=== PATIENT | male | born 1935 | race Two or more races ===

== ENCOUNTER 2019-09-20 07:46 | Inpatient (IN) | payer OTHER, MEDICAID ==
[~2019-09-20] VITALS: Ht 170.2 cm; Wt 81.6 kg
[2019-09-20] MEDS ORDERED: SODIUM CHLORIDE 0.9% 1,000 ML IV ONE (09:33)
[2019-09-20 10:12] LABS: Basophils # (auto) 0.1 10 ^3/uL (0-0.2); Basophils % (auto) 0.5 % (0.0-2.0); Eosinophils # (auto) 0.1 10 ^3/uL (0-0.8); Eosinophils % (auto) 0.4 % (0.0-7.0); Hematocrit 49.6 % (41.0-53.0); Hemoglobin 16.6 g/dL (13.5-17.5); Lymphocytes # (auto) 0.7 10 ^3/uL (0.4-5.4); Lymphocytes % (auto) 5.6 % (10.0-50.0); Mean Corpuscular Hemoglobin 30.2 pg (28.0-32.0); Mean Corpuscular Hgb Conc. 33.5 g/dL (32.0-36.0); Mean Corpuscular Volume 90.3 fL (80.0-100.0); Monocytes # (auto) 0.9 10 ^3/uL (0-1.3); Neutrophils # (auto) 11.7 10 ^3/uL (1.6-8.6); Neutrophils % (auto) 86.5 % (37.0-80.0); Nucleated Red Blood Cells % 0.1 %; Platelet Count (auto) 229 10^3/uL (140-450); Red Cell Distribution Width 13.7 % (11.8-14.3); White Blood Cell 13.5 10^3/uL (4.4-10.8)
[2019-09-20 10:33] LABS: Albumin 3.7 g/dL (3.4-5.0); Anion Gap 5 (5-15); Blood Urea Nitrogen 11 mg/dL (7-18); Calcium 8.7 mg/dL (8.5-10.1); Carbon Dioxide 28 mmol/L (21-32); Chloride 106 mmol/L (98-107); Glucose 132 mg/dL (74-106); Lipase 40 U/L (73-393); Magnesium 2.4 mg/dL (1.6-2.6); Potassium 4.4 mmol/L (3.5-5.1); Sodium 139 mmol/L (136-145)
[2019-09-20 10:34] LABS: INR 1.01 (0.9-1.15)
[2019-09-20 10:39] LABS: Alanine Aminotransferase 26 U/L (16-61); Alkaline Phosphatase 75 U/L (45-117); Aspartate Aminotransferase 18 U/L (15-37); BUN/Creatinine Ratio 10.2; Bilirubin, Total 0.8 mg/dL (0.2-1.0); GFR African American 84 mL/min; GFR Non-African American 69 mL/min; Total Protein 7.6 g/dL (6.4-8.2)
[2019-09-20] MEDS ORDERED: metroNIDAZOLE 500MG/100ML 100 ML IV ONE (11:15)
[2019-09-20] MEDS: VANCOMYCIN HCL 500MG/5ML ORAL SOL PO SCH ×3 (12:00→21:40)
[2019-09-20 13:35] LABS: Urine Bacteria NONE SEEN /hpf (None Seen); Urine Blood Negative /uL (Negative); Urine Hyaline Cast FEW /lpf (0 - 2); Urine Mucus FEW (None Seen); Urine Specific Gravity 1.023 (1.001-1.035); Urine WBC 1 /hpf (0 - 3)
[2019-09-20] MEDS ORDERED: cefTRIAXone 1GM/50ML D5W 50 ML IV ONE (14:45)
[2019-09-20] MEDS ORDERED: MORPHINE SULF INJ 2 MG/ML SYRINGE 1ML IV PRN ×3 (14:45)
[2019-09-20] MEDS ORDERED: DEXTROSE (50%) 50ML SYRG IV PRN (14:45)
[2019-09-20] MEDS ORDERED: ONDANSETRON HCL 4 MG/2 ML VIAL IV PRN (14:45)
[2019-09-20] MEDS ORDERED: ACETAMINOPHEN 500 MG TAB PO PRN (14:45)
[2019-09-20] MEDS ORDERED: NITROGLYCERIN 0.4 MG SL TAB SL PRN (14:45)
[2019-09-20] MEDS: FAMOTIDINE (10MG/ML) 2ML VL IV SCH (14:56)
--- NOTE | 2019-09-20 15:49 | NUR ---
MS admit from ER LUCY HINTON admitted to [facility] after SBAR received. Patient oriented to Janet Cruz, primary RN, unit, room, bed, and unit policies regarding patient care and visiting hours. Patient weighed by bedscale and encouraged to call if they need something. All questions and concerns addressed, patient verbalized understanding. Fall precs in place per protocol. Abstract Clerk at bedside Dr Garcia. New orders received for small bowel follow through and cont NPO status at this time. Will cont care.
[2019-09-20 16:00] VITALS: BP 138/76
[2019-09-20 17:00] VITALS: BP 138/76
--- NOTE | 2019-09-20 17:04 | NUR ---
Re small bowel series per Denise in radiology unable to perform small bowel series today and will do tomorrow a.m. Patient assisted up to the toilet and states he "just started passing gas". No distress or sob noted. Patient denies pain
[2019-09-20] MEDS: SODIUM CHLORIDE 0.9% 1,000 ML IV SCH (17:06)
[2019-09-20] MEDS ORDERED: TAMS0.4C36 PO (17:38)
[2019-09-20] MEDS: ACCU-CHEK COMFORT CURVE STRIP VI SCH ×2 (18:21→23:33)
[2019-09-20] MEDS ORDERED: TAMSULOSIN HYDROCHLORIDE 0.4 MG CAP PO ONE (18:45)
--- NOTE | 2019-09-20 19:00 | NUR ---
Patient care endorsed endorsed care to Apol rn. No distress noted or sob. Call light within reach
[2019-09-20] MEDS: metroNIDAZOLE 500MG/100ML 100 ML IV SCH (21:40)
[2019-09-20 22:00] VITALS: BP 123/71
[2019-09-21] MEDS: FAMOTIDINE (10MG/ML) 2ML VL IV SCH ×2 (03:00→15:40)
[2019-09-21] MEDS: SODIUM CHLORIDE 0.9% 1,000 ML IV SCH ×3 (03:00→20:33)
[2019-09-21 05:02] VITALS: BP 107/50
[2019-09-21] MEDS: metroNIDAZOLE 500MG/100ML 100 ML IV SCH (05:37)
[2019-09-21] MEDS: ACCU-CHEK COMFORT CURVE STRIP VI SCH ×4 (05:42→23:32)
[2019-09-21] MEDS: VANCOMYCIN HCL 500MG/5ML ORAL SOL PO SCH (05:42)
--- NOTE | 2019-09-21 06:28 | NUR ---
Stool for C-diff sent to lab, awaiting result. Patient on Flagyl and Vancomycin po.
[2019-09-21 07:16] LABS: Basophils # (auto) 0 10 ^3/uL (0-0.2); Basophils % (auto) 0.9 % (0.0-2.0); Eosinophils # (auto) 0.4 10 ^3/uL (0-0.8); Eosinophils % (auto) 6.6 % (0.0-7.0); Hematocrit 42.4 % (41.0-53.0); Hemoglobin 14.3 g/dL (13.5-17.5); Lymphocytes # (auto) 0.9 10 ^3/uL (0.4-5.4); Lymphocytes % (auto) 15.2 % (10.0-50.0); Mean Corpuscular Hemoglobin 30.5 pg (28.0-32.0); Mean Corpuscular Hgb Conc. 33.7 g/dL (32.0-36.0); Mean Corpuscular Volume 90.6 fL (80.0-100.0); Monocytes # (auto) 0.7 10 ^3/uL (0-1.3); Monocytes % (auto) 11.8 % (0.0-12.0); Neutrophils # (auto) 3.8 10 ^3/uL (1.6-8.6); Neutrophils % (auto) 65.5 % (37.0-80.0); Nucleated Red Blood Cells % 0.1 %; Platelet Count (auto) 188 10^3/uL (140-450); Red Blood Cells 4.68 10^6/uL (4.5-5.90); Red Cell Distribution Width 13.4 % (11.8-14.3); White Blood Cell 5.8 10^3/uL (4.4-10.8)
--- NOTE | 2019-09-21 07:30 | NUR ---
Received care of patient Assumed care of patient. Patient assisted up to the bathroom, walking independently no distress. Patient states he's passing gas now and had a soft bowel movement last night. Patient denies pain. Patient denies n/v. Will continue care
--- NOTE | 2019-09-21 08:02 | NUR ---
Patient taken down to Radiology via wheelchair no distress on departure.
[2019-09-21] MEDS ORDERED: GASTROGRAFIN 120 ML SOL ONE (08:05)
[2019-09-21] MEDS ORDERED: cefTRIAXone 1GM/50ML D5W 50 ML IV SCH (09:00)
--- NOTE | 2019-09-21 09:35 | NUR ---
Patient back from radiology. Will cont care. No distress noted or sob.
[2019-09-21] MEDS: ENOXAPARIN SOD 40 MG/0.4 ML SYRINGE SC SCH (10:09)
--- NOTE | 2019-09-21 11:15 | NUR ---
GI at bedside Net M[employer] Developer at bedside, aware of patient's status. Awaiting completion of small bowel follow through at this time. New orders received to dc abx. Patient states passing gas now and denies n/v. Will cont care.
[2019-09-21 13:00] VITALS: BP 131/72
[2019-09-21 17:00] VITALS: BP 134/75
--- NOTE | 2019-09-21 19:00 | NUR ---
Patient care endorsed endorsed care to Apol rn. Patient laying comfortably in bed no acute distress or sob. Patient states passing gas and has had multiple loose stools after gastrografin given. Denies pain. Call light within reach.
[2019-09-21 22:00] VITALS: BP 138/77
[2019-09-22] MEDS: FAMOTIDINE (10MG/ML) 2ML VL IV SCH ×2 (02:52→14:42)
[2019-09-22] MEDS: SODIUM CHLORIDE 0.9% 1,000 ML IV SCH ×3 (03:00→14:41)
[2019-09-22 05:00] VITALS: BP 130/66
[2019-09-22] MEDS: ACCU-CHEK COMFORT CURVE STRIP VI SCH ×3 (05:47→17:42)
[2019-09-22 08:00] VITALS: BP 136/73
--- NOTE | 2019-09-22 09:15 | NUR ---
DR FELIPE BEDSIDE WITH PATIENT DISCUSSING PLAN OF CARE
[2019-09-22] MEDS: ENOXAPARIN SOD 40 MG/0.4 ML SYRINGE SC SCH (10:06)
--- NOTE | 2019-09-22 11:50 | NUR ---
DR BAKER BEDSIDE WITH PATIENT DISCUSSING PLAN OF CARE
--- NOTE | 2019-09-22 11:56 | NUR ---
PAGED DR FELIPE TO INFORM HIM PATIENT WANTS TO LEAVE TODAY, HE SAID HE WILL LEAVE AMA IF HE IS NOT DISCHARGED. NEED TO CONFIRM IF DR FELIPE WILL CLEAR PATIENT FOR D/C AND THEN INFORM DR BAKER
[2019-09-22 12:00] VITALS: BP 134/73
--- NOTE | 2019-09-22 12:10 | NUR ---
SPOKE TO DR LOVE AND INFORMED HIM OF PATIENT WANTING TO LEAVE. DR FELIPE SAID HE WILL NOT CLEAR HIM FOR D/C AND PATIENT WILL HAVE TO LEAVE AMA.
--- NOTE | 2019-09-22 12:45 | NUR ---
PATIENT DECIDED HE WILL STAY AND NOT LEAVE AMA
--- NOTE | 2019-09-22 14:10 | NUR ---
DR LOVE BEDSIDE WITH PATIENT DISCUSSING PLAN OF CARE
[2019-09-22] MEDS ORDERED: MORPHINE SULF INJ 2 MG/ML SYRINGE 1ML IV PRN ×2 (14:15→14:45)
[2019-09-22 17:00] VITALS: BP 134/76
--- NOTE | 2019-09-22 17:34 | NUR ---
BLOOD SUGAR PATIENTS BLOOD SUGAR 44. PATIENT ASYMPTOMATIC, GAVE APPLE JUICE AND WILL RECHECK.
--- NOTE | 2019-09-22 17:45 | NUR ---
BLOOD SUGAR RECHECK AFTER RECEIVING APPLE JUICE, PATIENT BLOOD SUGAR IS NOW 73. WILL CONTINUE TO MONITOR
[2019-09-22] MEDS ORDERED: TAMSULOSIN HYDROCHLORIDE 0.4 MG CAP PO SCH (18:00)
--- NOTE | 2019-09-22 19:30 | NUR ---
Opening Shift Note Assumed care of patient, awake and alert x4. No S/S of distress/SOB or pain. Call light is within reach, fall precautions. Instructed on POC and to call for assist PRN, will continue to monitor for changes Q1hr and PRN.
[2019-09-22 21:00] VITALS: BP 130/75
[2019-09-23] MEDS: FAMOTIDINE (10MG/ML) 2ML VL IV SCH ×2 (02:34→14:45)
[2019-09-23 05:00] VITALS: BP 132/70
[2019-09-23] MEDS: SODIUM CHLORIDE 0.9% 1,000 ML IV SCH (05:07)
[2019-09-23] MEDS: ACCU-CHEK COMFORT CURVE STRIP VI SCH ×3 (05:35→12:00)
[2019-09-23 06:20] LABS: Calcium 8.2 mg/dL (8.5-10.1); Magnesium 2.3 mg/dL (1.6-2.6); Potassium 3.5 mmol/L (3.5-5.1)
--- NOTE | 2019-09-23 06:57 | NUR ---
Patient is resting in bed asleep. No S/S of distress, SOB , or pain. Call light is within reach. Will endorse care to dayshift CHRIS Landa.
--- NOTE | 2019-09-23 08:00 | NUR ---
RECEIVED PATIENT ALERT AND ORIENTED X4, SAMI PEAKING, NOT IN DISTRESS, CLEAR LS IN BILATERAL UPPER AND DIMINISHED IN LOWER LUNG LOBES, RR=18 XCM=600%, DEEP BREATHING AND COUGHING ENCOURAGED, DEMONSTRATED WELL, DENIED CHEST PAIN AND SOB, HEART RATE=58, ABDOMEN SOFT ND ROUND WITH ACTIVE BS, LAST BM= THIS MORNING REPORTED, SKIN INTACT WARM TO TOUCH, RADIAL AND PEDAL PULSES PALPABLE, CAP REFILL <3 SECONDS, DENIED PAIN, RESTING ON BED, HEAD OF BED ELEVATED, BED ON LOW POSITION, RAILS UP X2, CALL LIGHT ON REACH, WILL CONTINUE MONITORING.
[2019-09-23 09:00] VITALS: BP 132/61
[2019-09-23] MEDS: ENOXAPARIN SOD 40 MG/0.4 ML SYRINGE SC SCH (10:16)
[2019-09-23 13:00] VITALS: BP 135/71
--- NOTE | 2019-09-23 14:30 | NUR ---
Resting on bed, not in distress, denied pain, pending d/c home today, will continue monitoring.
[2019-09-23 16:32] VITALS: BP 132/76
--- NOTE | 2019-09-23 17:45 | NUR ---
D/C INSTRUCTION PROVIDED, VERBALIZED UNDERSTANDING, PCP FOLLOW UP INFORMATION PROVIDED, VERBALIZED UNDERSTANDING, D/C IV SITE, TOLERATED WELL, VS T=97.8 RR=18 SAT=97% P=66 YA=575/72, NOT IN DISTRESS, DENIED PAIN, WC PROVIDED, D/C HOME WALKING ACCOMPANIED BY FAMILY.
== END 2019-09-23 17:40 | disposition home or self-care (01) | DRG 389 ==
LOC: EDBD 07:46 → ER 07:46 → WEST WING 07:47
PROVIDERS: ADMIT Internal Medicine; ATTEND Internal Medicine
DX: K56.600 Partial intestinal obstruction, unspecified as to cause (principal); R65.10 Systemic inflammatory response syndrome (SIRS) of non-infectious origin without acute organ dysfunction; N40.1 Benign prostatic hyperplasia with lower urinary tract symptoms; R39.11 Hesitancy of micturition; R73.9 Hyperglycemia, unspecified; Z90.49 Acquired absence of other specified parts of digestive tract
CPT/HCPCS: 36415; 71046; 74176; 74250; 80048; 80053; 81001; 82150; 82962; 83036; 83690; 83735; 84484; 85025; 85610; 85730; 87493; 93005; 96365; 96367; G0378; J0696; J3490